=== PATIENT | male | born 1950 | race Caucasian/White ===

== ENCOUNTER 2019-07-16 15:22 | Outpatient (CLI) | payer MEDICARE, BC ==
--- NOTE | 2019-07-16 16:17 | MRI ---
MRI CERVICAL SPINE WITHOUT CONTRAST: HISTORY: Cervical radiculitis. Cervical pain radiating to both shoulders x3 months. COMPARISON: 08/16/2014 FINDINGS: Anterior fusion plate with transvertebral body screw at C5 and C6. Disc prosthesis. Associated metall ic susceptibility artifact. Overall there is appropriate T1 marrow signal intensity of the cervical vertebrae. Vertebral body height is maintained. No fracture. No significant STIR hyperintensity to dorman ggest vertebral body edema or ligamentous injury. C2-C3: No significant central canal stenosis. Moderate to severe bilateral foraminal narrowing. C3-C4: Broad-based disc bulge abuts the thecal sac. Mild central canal stenosis. Moderate to severe r ight and moderate left neural foraminal narrowing. C4-C5: Broad-based disc osteophyte complex abuts the thecal sac. Subarachnoid space is effaced. Moder ate central canal stenosis without cord hyperintensity. Mild to moderate right neural foraminal narrowing. Left neural foramen is mildly narrowed. C5-C6: Broad-based osteophyte ridge with mass effect upon the right hemicord. Moderate central canal stenosis without cord hyperintensity. Moderate to severe bilateral foraminal narrowing. C6-C7: Left paracentral disc protrusion. Mild central canal stenosis. Mild right and moderate to misti re left foraminal narrowing. C7-T1: No significant central canal stenosis or significant neural foraminal narrowing. IMPRESSION: 1. Degenerative changes of the cervical spine as detailed above. 2. Cervical fusion as detailed above. Transcribed Date/Time: 07/16/2019 4:27 PM
== END 2019-07-16 15:23 | disposition home or self-care (01) ==
LOC: BICMRI 15:22
PROVIDERS: ATTEND Family Medicine
DX: M47.22 Other spondylosis with radiculopathy, cervical region (principal); Z98.1 Arthrodesis status
CPT/HCPCS: 72141

== ENCOUNTER 2020-01-08 17:30 | Outpatient (CLI) | payer MEDICARE, BC | END 2020-01-08 17:31 | disposition home or self-care (01) | LOC: SLEEPLAB 17:30 | PROVIDERS: ATTEND Internal Medicine Critical Care Medicine | DX: G47.33 Obstructive sleep apnea (adult) (pediatric) (principal); R53.83 Other fatigue; R06.83 Snoring; G47.00 Insomnia, unspecified; R09.02 Hypoxemia; E66.9 Obesity, unspecified; Z68.34 Body mass index [BMI] 34.0-34.9, adult | CPT/HCPCS: 95801 ==

== ENCOUNTER 2020-01-24 05:35 | Outpatient (CLI) | payer MEDICARE, BC, OTHER ==
[2020-01-24 11:12] LABS: Hemoglobin 14.7 g/dL (14.0-18.0); Mean Corpuscular HGB CONC 31.9 g/dL (32.0-36.0); Mean Corpuscular Hemoglobin 29.3 pg (27.0-31.0); Mean Corpuscular Volume 91.9 fL (78.0-98.0); Mean Platelet Volume 8.1 fL (7.4-10.4); Platelet Count 135 thou/uL (130-400); RBC Distribution Width 12.3 % (11.5-14.5); Red Blood Cell (RBC) Count 5.01 mill/uL (4.70-6.10); White Blood Cell (WBC) Count 5.6 thou/uL (4.8-10.8)
[2020-01-24 11:47] LABS: Anion Gap 12 mmol/L (10-20); BUN (Urea Nitrogen) 15 mg/dL (8.4-25.7); Calc. Creatinine Clearance 0 mL/min (70-130); Calcium 8.6 mg/dL (7.8-10.44); Carbon Dioxide 27 mmol/L (23-31); Chloride 104 mmol/L (98-107); Estimated GFR-MDRD Greater than 90; Glucose 125 mg/dL (80-115); Potassium 4.2 mmol/L (3.5-5.1); Sodium 139 mmol/L (136-145)
[2020-01-25 12:48] LABS: SARS-CoV-2 MS2 Positive; SARS-CoV-2 N Gene Negative; SARS-CoV-2 S Gene Negative; SARS-CoV-2 orf1ab Negative
== END 2020-01-24 05:36 | disposition home or self-care (01) ==
LOC: LABBT 05:35
PROVIDERS: ATTEND Neurological Surgery
DX: Z01.812 Encounter for preprocedural laboratory examination (principal); Z11.59 Encounter for screening for other viral diseases; M54.12 Radiculopathy, cervical region
CPT/HCPCS: 80048; 85027; U0003; 87635

== ENCOUNTER 2020-01-28 08:06 | Day surgery (SDC) | payer MEDICARE, BC ==
[2020-01-22 10:22] VITALS: BMI 34.4
--- NOTE | 2020-01-27 23:26 | HP ---
HISTORY OF PRESENT ILLNESS: Mr. Sorenson is a 69-year-old man, presenting to our clinic for evaluation of recurrent cervical radiculopathy. He is known to our practice for prior ACDF in 2014. There was a C5-7 procedure planned, but there was a significant degree of difficulty in the surgical approach and ultimately a C5-6 procedure was able to be completed. His current pains have been present since April and comprised of combination of both right upper extremity C6 and C7 pattern. He does report numbness that is present most of the time over the same distributions. He has no left upper extremity pains, but does have some tingling to the left ear. Dr. Curtis has been providing epidural steroid injections at C5-7 with success, but only for around 2 to 3 weeks at a time. MRI from [facility] reveals likely symptomatic stenosis at C5-6 and the adjacent segment caudal to this at C6-7. Examination is deferred for [facility]. PAST MEDICAL HISTORY: Significant for arthritis, asthma, allergies, hypercholesterolemia, chronic pain, gout, heart disease, prior stroke, and hypothyroidism. PAST SURGICAL HISTORY: Lymph node biopsy, ACDF, and cardiac stents. ALLERGIES: NO KNOWN DRUG ALLERGIES. CURRENT MEDICATIONS: 1. Atorvastatin. 2. Tamsulosin. 3. Celebrex. 4. Bystolic. 5. Trintellix. 6. Avastin eye injections. 7. Ventolin. 8. Benadryl. 9. Aspirin. 10. Glucosamine. ASSESSMENT: Cervical radiculopathy. PLAN: Dr. Rush met with the patient, reviewed imaging and advocated for C5-C7 posterior cervical foraminotomy. He explained to the patient risks, benefits, and alternatives to the procedure. The patient expressed understanding and elected to move forward with surgery as discussed. I do believe the patient is mentally competent and capable of making medical decisions for himself. We will move forward with surgery as planned. Job ID: [id number]
[2020-01-28] MEDS ORDERED: Thrombin 5000 UNITS/5 ML VIAL ONE (11:25)
[2020-01-28] MEDS ORDERED: Bupivacaine PF 0.5% 30 ML VIAL ONE (11:25)
[2020-01-28] MEDS ORDERED: EPINEPHrine 1 MG/ML AMP ONE (11:25)
[2020-01-28] MEDS ORDERED: Lidocaine 2% Jelly 5 ML TUBE ONE (11:26)
[2020-01-28] MEDS ORDERED: Fentanyl 100 MCG/2 ML VIAL ONE ×4 (11:26→13:49)
[2020-01-28] MEDS ORDERED: Glycopyrrolate 0.2 MG/ML 5 ML SYRINGE ONE (12:52)
[2020-01-28] MEDS ORDERED: PROPOFOL 200 MG/20 ML VIAL ONE (12:52)
[2020-01-28] MEDS ORDERED: Dexamethasone 20 MG/5 ML VIAL ONE (12:52)
[2020-01-28] MEDS ORDERED: Lidocaine 1% PF 5 ML VIAL ONE (12:52)
[2020-01-28] MEDS ORDERED: PHENYLEPHRINE-NS 100 MCG/ML 10 ML SYRINGE ONE (12:52)
[2020-01-28] MEDS ORDERED: Rocuronium Bromide 10 MG/ML (10ML VIAL) ONE (12:52)
--- NOTE | 2020-01-28 13:05 | OP ---
DATE OF PROCEDURE: 01/28/2020 [employer]: Parish Montanez PA-C INDICATION: Pain. DIAGNOSIS: Cervical radiculopathy. PROCEDURES PERFORMED: Posterior cervical foraminotomy at C5 through C7 bilaterally. ANESTHESIA: General. DESCRIPTION OF PROCEDURE: The patient was brought into the operating room and placed under general anesthesia. He was flipped from the supine to prone position on the operating room table. A linear incision was planned spanning C5 through C7. After prepping and draping and after an appropriate preoperative pause, the incision was created. The soft tissues were swept away from midline. Self-retaining retractors were placed in the wound for optimal exposure. After confirming the appropriate level with serum fluoroscopy, high-speed cutting drill bit was used to performed a foraminotomy over the exiting C6 and C7 nerve roots. The foraminotomies were completed using 1 and 2 mm Kerrisons. After completing the decompression, the wound was irrigated. Hemostasis was maintained throughout. The wound was then closed in anatomic layers, and a pressure dressing was applied. There were no known procedural complications. Job ID: [id number]
[2020-01-28] MEDS ORDERED: Tamsulosin HCl 0.4 MG CAP ONE (13:49)
[2020-01-28] MEDS ORDERED: HYDROcodone/Acetaminophen 5/325 mg Tablet ONE (14:57)
== END 2020-01-28 15:34 | disposition home or self-care (01) ==
LOC: SDC 08:06
PROVIDERS: ATTEND Neurological Surgery
PROC: 01N10ZZ Release Cervical Nerve, Open Approach (ICD-10-PCS; principal; 2020-01-28)
DX: M54.12 Radiculopathy, cervical region (principal); M48.02 Spinal stenosis, cervical region; M19.90 Unspecified osteoarthritis, unspecified site; J45.909 Unspecified asthma, uncomplicated; E78.00 Pure hypercholesterolemia, unspecified; G89.29 Other chronic pain; M10.9 Gout, unspecified; I11.9 Hypertensive heart disease without heart failure; E03.9 Hypothyroidism, unspecified; G47.33 Obstructive sleep apnea (adult) (pediatric); I25.10 Atherosclerotic heart disease of native coronary artery without angina pectoris; E78.5 Hyperlipidemia, unspecified; N40.0 Benign prostatic hyperplasia without lower urinary tract symptoms; F32.9 Major depressive disorder, single episode, unspecified; Z86.73 Personal history of transient ischemic attack (TIA), and cerebral infarction without residual deficits; Z87.891 Personal history of nicotine dependence; Z79.82 Long term (current) use of aspirin; Z79.899 Other long term (current) drug therapy; Z88.8 Allergy status to other drugs, medicaments and biological substances; Z98.1 Arthrodesis status
CPT/HCPCS: 76000; 93005; 93010; J0171; J0690; J3010; S0020

== ENCOUNTER 2020-09-03 10:40 | Outpatient (CLI) | payer MEDICARE, BC ==
--- NOTE | 2020-09-03 11:38 | RAD ---
Chest 2 views HISTORY: Worsening dyspnea. COMPARISON: 11/22/2019. FINDINGS: Cardiac silhouette and pulmonary vasculature are unremarkable. Mediastinum is midline. Post operative changes cervical spine. Widespread, predominantly peripheral thickened interstitial markings have progressed since the prior study. Linear atelectasis/scarring at the right posterior lung base is also slightly worsened. No airspace consolidation, pleural fluid, or pneumothorax evident. IMPRESSION : Interval radiographic progression of suspected chronic interstitial lung disease and right basilar sc arring. No acute process is otherwise demonstrated.
--- NOTE | 2020-09-03 12:59 | RAD ---
EXAM: 3 views of the lumbosacral spine HISTORY: Low back pain for years COMPARISON: None FINDINGS: 3 views of the lumbosacral spine shows normal height and alignment of the vertebral bodies without fracture or subluxation. The intervertebral discs are narrowed at L4/5 and L5/S1 with small surrounding osteophytes. Posterior facet arthrosis is seen in the lower lumbosacral spine. The sacroiliac joints are unremarkable. Vascular calcifications are seen. IMPRESSION: Degenerative changes of the lower lumbosacral spine without acute osseous abnormality.
== END 2020-09-03 10:41 | disposition home or self-care (01) ==
LOC: BICRAD 10:40
PROVIDERS: ATTEND Family Medicine
DX: R06.00 Dyspnea, unspecified (principal); M54.9 Dorsalgia, unspecified; M47.817 Spondylosis without myelopathy or radiculopathy, lumbosacral region
CPT/HCPCS: 71046; 72100

== ENCOUNTER 2020-10-14 11:03 | Outpatient (CLI) | payer MEDICARE, BC | END 2020-10-14 11:04 | disposition home or self-care (01) | LOC: BICCT 11:03 | PROVIDERS: ATTEND Internal Medicine Critical Care Medicine | DX: J84.9 Interstitial pulmonary disease, unspecified (principal); J98.11 Atelectasis; J47.9 Bronchiectasis, uncomplicated; J98.4 Other disorders of lung | CPT/HCPCS: 71250 ==

== ENCOUNTER 2020-10-29 07:21 | Observation (INO) | payer MEDICARE, BC ==
[2020-10-28 14:07] VITALS: BMI 35.9
[2020-10-29] MEDS ORDERED: Levofloxacin 500 mg/D5W 100 ml Premix Bag ONE (07:35)
[2020-10-29 09:00] LABS: PTT 28.9 sec (22.9-36.1); Prothrombin Time 13.3 sec (12.0-14.7)
[2020-10-29] MEDS ORDERED: Iothalamate Meglumine 60% 50 ML VIAL FS ONE (09:26)
[2020-10-29] MEDS ORDERED: SUGAMMADEX SODIUM 200 MG/2 ML VIAL ONE ×2 (10:39→13:35)
[2020-10-29] MEDS ORDERED: Fentanyl 100 MCG/2 ML VIAL ONE (10:39)
[2020-10-29] MEDS ORDERED: Rocuronium Bromide 10 MG/ML (10ML VIAL) ONE (12:01)
[2020-10-29] MEDS ORDERED: Ondansetron PF 4 MG/2 ML Vial ONE (12:01)
[2020-10-29] MEDS ORDERED: Dexamethasone 20 MG/5 ML VIAL ONE (12:01)
[2020-10-29] MEDS ORDERED: ePHEDrine Sulfate 50 MG/10 ML VIAL ONE (12:01)
[2020-10-29] MEDS ORDERED: Lidocaine 1% PF 5 ML VIAL ONE (12:01)
[2020-10-29] MEDS ORDERED: PROPOFOL 200 MG/20 ML VIAL ONE (12:01)
[2020-10-29] MEDS ORDERED: PHENYLEPHRINE-NS 100 MCG/ML 10 ML SYRINGE ONE (12:01)
[2020-10-29] MEDS ORDERED: Phenazopyridine HCl 100 MG TAB ONE (14:00)
[2020-10-29] MEDS ORDERED: Tamsulosin HCl 0.4 MG CAP ONE (14:00)
[2020-11-05 21:12] LABS: CA Oxalate Dihydrate 10 % (.); CA Oxalate Monohydrate 90 % (.); Color Brown (.); Stone Weight 23 mg (.)
== END 2020-10-29 15:45 | disposition home or self-care (01) ==
LOC: INTOOBSV 07:21 → SURG A 07:21 → EDSTATUS 12:48
PROVIDERS: ADMIT Urology; ATTEND Urology
PROC: 0TC08ZZ Extirpation of Matter from Right Kidney, Via Natural or Artificial Opening Endoscopic (ICD-10-PCS; principal; 2020-10-29)
PROC: 0T768DZ Dilation of Right Ureter with Intraluminal Device, Via Natural or Artificial Opening Endoscopic (ICD-10-PCS; 2020-10-29)
PROC: 0TP98DZ Removal of Intraluminal Device from Ureter, Via Natural or Artificial Opening Endoscopic (ICD-10-PCS; 2020-10-29)
PROC: 0TJ58ZZ Inspection of Kidney, Via Natural or Artificial Opening Endoscopic (ICD-10-PCS; 2020-10-29)
PROC: 0TC68ZZ Extirpation of Matter from Right Ureter, Via Natural or Artificial Opening Endoscopic (ICD-10-PCS; 2020-10-29)
PROC: 0T538ZZ Destruction of Right Kidney Pelvis, Via Natural or Artificial Opening Endoscopic (ICD-10-PCS; 2020-10-29)
PROC: BT1DZZZ Fluoroscopy of Right Kidney, Ureter and Bladder (ICD-10-PCS; 2020-10-29)
PROC: 0T9680Z Drainage of Right Ureter with Drainage Device, Via Natural or Artificial Opening Endoscopic (ICD-10-PCS; 2020-10-29)
DX: N20.2 Calculus of kidney with calculus of ureter (principal); I10 Essential (primary) hypertension; I25.10 Atherosclerotic heart disease of native coronary artery without angina pectoris; R31.9 Hematuria, unspecified; F32.9 Major depressive disorder, single episode, unspecified; I73.9 Peripheral vascular disease, unspecified; M10.9 Gout, unspecified; N28.9 Disorder of kidney and ureter, unspecified; N40.1 Benign prostatic hyperplasia with lower urinary tract symptoms; R39.11 Hesitancy of micturition; M54.12 Radiculopathy, cervical region; J84.10 Pulmonary fibrosis, unspecified; K59.00 Constipation, unspecified; R97.20 Elevated prostate specific antigen [PSA]; Z20.822 Contact with and (suspected) exposure to COVID-19; M19.90 Unspecified osteoarthritis, unspecified site; Z85.828 Personal history of other malignant neoplasm of skin; Z79.82 Long term (current) use of aspirin; Z79.899 Other long term (current) drug therapy; Z88.8 Allergy status to other drugs, medicaments and biological substances; Z87.891 Personal history of nicotine dependence
CPT/HCPCS: 52356; 74018; 74420; 82365; 85610; 85730; 88300; C2617; Q9961; J1100; J1956; J2405; J2704; J3010; J7620

== ENCOUNTER 2020-11-11 07:14 | Emergency (ER) | payer MEDICARE, BC ==
[2020-11-11] MEDS ORDERED: Ondansetron PF 4 MG/2 ML Vial ONE (07:31)
[2020-11-11] MEDS ORDERED: Ketorolac Tromethamine 30 MG/ML VIAL ONE (07:31)
[2020-11-11] MEDS ORDERED: Morphine 4 MG/ML VIAL ONE (07:31)
[2020-11-11 07:52] LABS: #Eosinphils 0.1 thou/uL (0.0-0.7); #Lymphocytes 1.6 thou/uL (1.20-3.40); #Neutrophils 7.6 thou/uL (1.40-6.50); %Basophils 0.4 % (0.0-1.0); %Eosinophils 1.4 % (0.0-10.0); %Lymphocytes 15.2 % (21.0-51.0); Mean Corpuscular HGB CONC 32.3 g/dL (32.0-36.0); Mean Corpuscular Hemoglobin 29.8 pg (27.0-31.0); Mean Corpuscular Volume 92.3 fL (78.0-98.0); Mean Platelet Volume 7.2 fL (7.4-10.4); Platelet Count 157 thou/uL (130-400); RBC Distribution Width 12.3 % (11.5-14.5); Red Blood Cell (RBC) Count 4.69 mill/uL (4.70-6.10); White Blood Cell (WBC) Count 10.3 thou/uL (4.8-10.8)
[2020-11-11 08:16] LABS: ALT (SGPT) 50 U/L (8-55); AST (SGOT) 29 U/L (5-34); Alkaline Phosphatase 65 U/L (40-110); Anion Gap 13 mmol/L (10-20); BUN (Urea Nitrogen) 26 mg/dL (8.4-25.7); Bilirubin, Total 0.7 mg/dL (0.2-1.2); Calc. Creatinine Clearance 0 mL/min (70-130); Calcium 8.8 mg/dL (7.8-10.44); Carbon Dioxide 23 mmol/L (23-31); Chloride 107 mmol/L (98-107); Globulin 2.8 g/dL (2.4-3.5); Glucose 113 mg/dL (80-115); Potassium 4.2 mmol/L (3.5-5.1); Protein, Total 6.8 g/dL (5.8-8.1); Sodium 139 mmol/L (136-145)
[2020-11-11 09:05] LABS: Bacteria/HPF None Seen HPF (None Seen); Bilirubin Negative (Negative); Blood, Urine 3+ (Negative); Clarity Clear (Clear); Glucose, Urine (Dipstick) Normal (Negative); Ketone, Urine Negative (Negative); Leukocyte Negative Leu/uL (Negative); Nitrite Negative (Negative); Protein, Urine (Dipstick) Negative (Neg-Trace); RBC/HPF 21-50 HPF (0-3); Specific Gravity, Urine 1.019 (1.002-1.036); Squamous Epithelial 0-3 HPF (0-3); Urobilinogen Normal mg/dL (Less than 2); WBC/HPF 0-3 HPF (0-3)
[2020-11-11 15:52] LABS: SARS-CoV-2 PCR by NAA Not Detected (NotDetected)
== END 2020-11-11 10:53 | disposition home or self-care (01) ==
LOC: ERS 07:14
DX: N13.2 Hydronephrosis with renal and ureteral calculous obstruction (principal); E03.9 Hypothyroidism, unspecified; E78.00 Pure hypercholesterolemia, unspecified; Z87.891 Personal history of nicotine dependence; Z79.82 Long term (current) use of aspirin; Z79.899 Other long term (current) drug therapy
CPT/HCPCS: 74176; 80053; 85025; 87086; 96374; 96375; 99284; U0003; U0005; 81003; 81015; 87635; J1885; J2270; J2405

== ENCOUNTER 2020-11-12 07:50 | Day surgery (SDC) | payer MEDICARE, BC ==
[2020-11-12] MEDS ORDERED: Levofloxacin 500 mg/D5W 100 ml Premix Bag ONE (08:43)
[2020-11-12] MEDS ORDERED: Fentanyl 100 MCG/2 ML VIAL ONE (09:20)
[2020-11-12] MEDS ORDERED: Iothalamate Meglumine 60% 50 ML VIAL FS ONE (09:22)
[2020-11-12] MEDS ORDERED: Rocuronium Bromide 10 MG/ML (10ML VIAL) ONE (09:33)
[2020-11-12] MEDS ORDERED: Dexamethasone 20 MG/5 ML VIAL ONE (09:33)
[2020-11-12] MEDS ORDERED: PROPOFOL 200 MG/20 ML VIAL ONE (09:33)
[2020-11-12] MEDS ORDERED: Ondansetron PF 4 MG/2 ML Vial ONE (09:33)
[2020-11-12] MEDS ORDERED: Lidocaine 1% PF 5 ML VIAL ONE (09:33)
[2020-11-12] MEDS ORDERED: Glycopyrrolate 0.2 MG/ML 5 ML SYRINGE ONE (09:33)
[2020-11-12] MEDS ORDERED: SUGAMMADEX SODIUM 200 MG/2 ML VIAL ONE (11:01)
[2020-11-12] MEDS ORDERED: HYDROcodone/Acetaminophen 5/325 mg Tablet ONE ×3 (11:24→15:13)
[2020-11-12] MEDS ORDERED: Phenazopyridine HCl 100 MG TAB ONE (11:25)
[2020-11-12] MEDS ORDERED: Ondansetron ODT 4 MG TAB ONE (14:34)
[2020-11-12] MEDS ORDERED: Oxybutynin 5 MG TAB ONE (15:19)
[2020-11-12] MEDS ORDERED: Ketorolac Tromethamine 30 MG/ML VIAL ONE (15:41)
== END 2020-11-12 16:13 | disposition home or self-care (01) ==
LOC: SDC 07:50
PROVIDERS: ATTEND Urology
PROC: 0TC48ZZ Extirpation of Matter from Left Kidney Pelvis, Via Natural or Artificial Opening Endoscopic (ICD-10-PCS; principal; 2020-11-12)
PROC: 0T778DZ Dilation of Left Ureter with Intraluminal Device, Via Natural or Artificial Opening Endoscopic (ICD-10-PCS; 2020-11-12)
DX: N20.2 Calculus of kidney with calculus of ureter (principal); N40.1 Benign prostatic hyperplasia with lower urinary tract symptoms; R39.11 Hesitancy of micturition; I25.10 Atherosclerotic heart disease of native coronary artery without angina pectoris; E78.5 Hyperlipidemia, unspecified; I10 Essential (primary) hypertension; E03.9 Hypothyroidism, unspecified; M19.90 Unspecified osteoarthritis, unspecified site; G47.33 Obstructive sleep apnea (adult) (pediatric); E78.00 Pure hypercholesterolemia, unspecified; I25.2 Old myocardial infarction; I73.9 Peripheral vascular disease, unspecified; M54.12 Radiculopathy, cervical region; M10.9 Gout, unspecified; J84.10 Pulmonary fibrosis, unspecified; Z87.891 Personal history of nicotine dependence; Z79.82 Long term (current) use of aspirin; Z79.899 Other long term (current) drug therapy; Z88.8 Allergy status to other drugs, medicaments and biological substances; Z95.5 Presence of coronary angioplasty implant and graft
CPT/HCPCS: 52356; 74018; 74420; Q9961; J1100; J1885; J1956; J2405; J2704; J3010; Q0162

== ENCOUNTER 2021-02-20 09:32 | Outpatient (CLI) | payer MEDICARE, BC ==
[2021-02-21 16:36] LABS: SARS-CoV-2 PCR by NAA Not Detected (NotDetected)
== END 2021-02-20 09:33 | disposition home or self-care (01) ==
LOC: LABBT 09:32
PROVIDERS: ATTEND Urology
DX: Z01.812 Encounter for preprocedural laboratory examination (principal); Z20.822 Contact with and (suspected) exposure to COVID-19
CPT/HCPCS: U0003; U0005

== ENCOUNTER 2021-02-25 07:49 | Day surgery (SDC) | payer MEDICARE, BC ==
[2021-02-24 12:40] VITALS: BMI 35.9
[2021-02-25] MEDS ORDERED: Levofloxacin 500 mg/D5W 100 ml Premix Bag ONE (08:06)
[2021-02-25] MEDS ORDERED: Fentanyl 100 MCG/2 ML VIAL ONE (08:46)
[2021-02-25] MEDS ORDERED: Midazolam HCl 2 mg/2 ml Vial ONE (08:46)
[2021-02-25] MEDS ORDERED: Famotidine/PF 20 mg/2ml Vial ONE (08:46)
[2021-02-25] MEDS ORDERED: diphenhydrAMINE 50 MG/ML VIAL ONE (09:42)
[2021-02-25] MEDS ORDERED: PROPOFOL 200 MG/20 ML VIAL ONE (09:42)
[2021-02-25] MEDS ORDERED: Lidocaine 1% PF 5 ML VIAL ONE (09:42)
[2021-02-25] MEDS ORDERED: Ondansetron PF 4 MG/2 ML Vial ONE (09:42)
[2021-02-25] MEDS ORDERED: Metoclopramide HCl 10 MG/2 ML VIAL ONE (09:42)
[2021-02-25] MEDS ORDERED: Phenazopyridine HCl 100 MG TAB ONE (10:43)
[2021-02-25] MEDS ORDERED: HYDROcodone/Acetaminophen 5/325 mg Tablet ONE (10:57)
[2021-02-25] MEDS ORDERED: Ketorolac Tromethamine 30 MG/ML VIAL ONE (11:43)
== END 2021-02-25 12:35 | disposition home or self-care (01) ==
LOC: SDC 07:49
PROVIDERS: ATTEND Urology
PROC: 0T7D8DZ Dilation of Urethra with Intraluminal Device, Via Natural or Artificial Opening Endoscopic (ICD-10-PCS; principal; 2021-02-25)
DX: N40.1 Benign prostatic hyperplasia with lower urinary tract symptoms (principal); R39.14 Feeling of incomplete bladder emptying; N13.8 Other obstructive and reflux uropathy; N32.89 Other specified disorders of bladder; G47.33 Obstructive sleep apnea (adult) (pediatric); I25.10 Atherosclerotic heart disease of native coronary artery without angina pectoris; E78.5 Hyperlipidemia, unspecified; I10 Essential (primary) hypertension; E03.9 Hypothyroidism, unspecified; M19.90 Unspecified osteoarthritis, unspecified site; M54.12 Radiculopathy, cervical region; M10.9 Gout, unspecified; J84.10 Pulmonary fibrosis, unspecified; K59.00 Constipation, unspecified; E78.00 Pure hypercholesterolemia, unspecified; I25.2 Old myocardial infarction; Z87.442 Personal history of urinary calculi; Z87.891 Personal history of nicotine dependence; Z79.82 Long term (current) use of aspirin; Z79.899 Other long term (current) drug therapy; Z88.8 Allergy status to other drugs, medicaments and biological substances; Z95.5 Presence of coronary angioplasty implant and graft
CPT/HCPCS: 93005; C9740; 93010; J1200; J1885; J1956; J2250; J2405; J2704; J2765; J3010; L8699; S0028

== ENCOUNTER 2021-06-24 11:40 | Outpatient (CLI) | payer MEDICARE, BC | END 2021-06-24 11:41 | disposition home or self-care (01) | LOC: BICRAD 11:40 | PROVIDERS: ATTEND Family Medicine | DX: J84.10 Pulmonary fibrosis, unspecified (principal); R06.00 Dyspnea, unspecified | CPT/HCPCS: 71046 ==

== ENCOUNTER 2021-08-17 09:51 | Outpatient (CLI) | payer MEDICARE, BC | END 2021-08-17 09:52 | disposition home or self-care (01) | LOC: SCSMRI 09:51 | PROVIDERS: ATTEND Family Medicine | DX: M48.061 Spinal stenosis, lumbar region without neurogenic claudication (principal) | CPT/HCPCS: 70210; 72148 ==

== ENCOUNTER 2021-10-22 09:37 | Outpatient (CLI) | payer MEDICARE, BC | END 2021-10-22 09:38 | disposition home or self-care (01) | LOC: SCSCT 09:37 | PROVIDERS: ATTEND Internal Medicine Critical Care Medicine | DX: J84.9 Interstitial pulmonary disease, unspecified (principal); J84.10 Pulmonary fibrosis, unspecified | CPT/HCPCS: 71250 ==

== ENCOUNTER 2021-12-23 22:43 | Inpatient (IN) | payer MEDICARE, BC ==
[2021-12-24] MEDS ORDERED: Nitroglycerin 0.4 MG TAB (25 Tab Bottle) SL PRN (00:42)
[2021-12-24] MEDS ORDERED: Morphine 2 MG/ML VIAL SLOW IVP PRN ×2 (00:42→21:30)
[2021-12-24] MEDS ORDERED: Heparin 25,000 units/D5W 500 ML IVPB SCH (00:45)
[2021-12-24] MEDS ORDERED: Sodium Chloride 0.9% 500 ML IV SCH (01:00)
[2021-12-24 01:38] LABS: Hemoglobin 14.5 g/dL (14.0-18.0); Platelet Count 151 thou/uL (130-400)
[2021-12-24 02:24] LABS: CKMB 18.1 ng/mL (0-6.6)
[2021-12-24 03:55] LABS: #Eosinphils 0.1 thou/uL (0.0-0.7); #Lymphocytes 1.8 thou/uL (1.20-3.40); #Monocytes 0.6 thou/uL (0.11-0.59); #Neutrophils 4.5 thou/uL (1.40-6.50); %Basophils 0.2 % (0.0-1.0); %Eosinophils 1.2 % (0.0-10.0); %Lymphocytes 25.1 % (21.0-51.0); %Monocytes 8.3 % (0.0-10.0); %Neutrophils 65.1 % (42.0-75.0); Hemoglobin 14.2 g/dL (14.0-18.0); Mean Corpuscular HGB CONC 32.5 g/dL (32.0-36.0); Mean Corpuscular Volume 95.3 fL (78.0-98.0); Mean Platelet Volume 6.7 fL (7.4-10.4); Platelet Count 150 thou/uL (130-400)
[2021-12-24 04:21] LABS: ALT (SGPT) 39 U/L (8-55); AST (SGOT) 37 U/L (5-34); Albumin 3.7 g/dL (3.4-4.8); Alkaline Phosphatase 63 U/L (40-110); Anion Gap 14 mmol/L (10-20); BUN (Urea Nitrogen) 16 mg/dL (8.4-25.7); Bilirubin, Total 0.5 mg/dL (0.2-1.2); Calc. Creatinine Clearance 0 mL/min (70-130); Carbon Dioxide 24 mmol/L (23-31); Cardiac Risk 4.1 (Less than 4.5); Chloride 105 mmol/L (98-107); Cholesterol 130 mg/dl (< 200 Desired); Globulin 2.7 g/dL (2.4-3.5); Glucose 103 mg/dL (80-115); HDL Cholesterol 32 mg/dL (>60 Neg Risk); LDL Cholesterol, Calculated 64 mg/dL; Potassium 4.2 mmol/L (3.5-5.1); Protein, Total 6.4 g/dL (5.8-8.1); Sodium 139 mmol/L (136-145); Triglycerides 172 mg/dL (Less than 150)
[2021-12-24 04:35] LABS: Thyroid Stimulating Hormone 0.0682 uIU/mL (0.35-4.94)
[2021-12-24 05:06] LABS: Free T4 (Free Thyroxine) 1.03 ng/dL (0.70-1.48)
[2021-12-24] MEDS: Heparin 10,000 UNITS/ 10 ML VIAL SLOW IVP SCH ×2 (06:08→13:27)
[2021-12-24 07:20] LABS: Troponin I 7.538 ng/mL (< 0.028)
[2021-12-24 07:21] LABS: CKMB 40.5 ng/mL (0-6.6)
[2021-12-24 07:29] LABS: SARS-CoV-2 NAA Rapid Test Not Detected (NotDetected)
[2021-12-24] MEDS ORDERED: Chloraseptic Spray 180 ml Bottle PO PRN (08:13)
[2021-12-24] MEDS ORDERED: Aspirin Chewable 81 MG TAB PO SCH (09:00)
[2021-12-24] MEDS ORDERED: Diazepam 5 MG TAB PO PRN (15:01)
[2021-12-24] MEDS ORDERED: Communication Order-Pharmacy FS PRN (15:01)
[2021-12-24] MEDS ORDERED: Morphine 4 MG/ML VIAL ONE (17:37)
[2021-12-24] MEDS ORDERED: Nitroglycerin 2% Ointment 1 INCH/1 GM Packet ONE (17:39)
[2021-12-24] MEDS ORDERED: Nitroglycerin 2% Ointment 1 INCH/1 GM Packet TOP SCH (18:00)
[2021-12-24] MEDS ORDERED: Morphine 2 MG/ML VIAL SLOW IVP SCH (18:00)
[2021-12-24] MEDS ORDERED: Tamsulosin HCl 0.4 MG CAP PO SCH (21:00)
[2021-12-24] MEDS ORDERED: Non-Formulary Item 1 EACH (Budesonide/Glycopyr/Formoterol [Breztri Aerosphere Inhaler] 10 INH SCH (21:00)
[2021-12-24] MEDS ORDERED: Atorvastatin Calcium 40 MG TAB PO SCH (21:00)
[2021-12-24] MEDS ORDERED: Nitroglycerin 50 MG/250 ML BOT 250 ML IVPB SCH (21:30)
[2021-12-25 03:56] LABS: #Eosinphils 0.2 thou/uL (0.0-0.7); #Lymphocytes 1.5 thou/uL (1.20-3.40); #Monocytes 0.8 thou/uL (0.11-0.59); #Neutrophils 6.7 thou/uL (1.40-6.50); %Basophils 0.2 % (0.0-1.0); %Eosinophils 2.1 % (0.0-10.0); %Monocytes 8.3 % (0.0-10.0); %Neutrophils 73.5 % (42.0-75.0); Mean Corpuscular HGB CONC 31.8 g/dL (32.0-36.0); Mean Corpuscular Hemoglobin 30.8 pg (27.0-31.0); Mean Corpuscular Volume 96.7 fL (78.0-98.0); Mean Platelet Volume 6.8 fL (7.4-10.4); Platelet Count 130 thou/uL (130-400); RBC Distribution Width 13.1 % (11.5-14.5); Red Blood Cell (RBC) Count 4.53 mill/uL (4.70-6.10); White Blood Cell (WBC) Count 9.1 thou/uL (4.8-10.8)
[2021-12-25 04:26] LABS: ALT (SGPT) 39 U/L (8-55); AST (SGOT) 38 U/L (5-34); Albumin 3.7 g/dL (3.4-4.8); Alkaline Phosphatase 62 U/L (40-110); Anion Gap 14 mmol/L (10-20); BUN (Urea Nitrogen) 11 mg/dL (8.4-25.7); Bilirubin, Total 0.6 mg/dL (0.2-1.2); Calc. Creatinine Clearance 124 mL/min (70-130); Calcium 8.6 mg/dL (7.8-10.44); Carbon Dioxide 23 mmol/L (23-31); Chloride 105 mmol/L (98-107); Globulin 2.7 g/dL (2.4-3.5); Glucose 128 mg/dL (80-115); Potassium 3.8 mmol/L (3.5-5.1); Protein, Total 6.4 g/dL (5.8-8.1); Sodium 138 mmol/L (136-145)
[2021-12-25] MEDS ORDERED: Levothyroxine Sodium 100 MCG TAB PO SCH (06:00)
[2021-12-25] MEDS ORDERED: Dexamethasone 4 mg/ml Vial ONE (06:25)
[2021-12-25] MEDS ORDERED: EPINEPHrine 1 MG/ML AMP ONE (06:25)
[2021-12-25] MEDS ORDERED: Albumin 5% 500 ML ONE ×2 (06:25→10:55)
[2021-12-25] MEDS ORDERED: Bupivacaine PF 0.5% 30 ML VIAL ONE (06:25)
[2021-12-25] MEDS ORDERED: fentaNYL Citrate/PF 100 MCG/2 ML SYRINGE ONE ×4 (06:54→10:05)
[2021-12-25] MEDS ORDERED: Fentanyl 100 MCG/2 ML VIAL ONE ×2 (06:58→06:59)
[2021-12-25] MEDS ORDERED: Heparin 10,000 UNITS/1 ML VIAL 30,000 UNITS in Sodium Chloride 0.9% 1,000 ML FS SCH (07:00)
[2021-12-25] MEDS ORDERED: Ondansetron PF 4 MG/2 ML Vial IVP PRN (07:17)
[2021-12-25] MEDS ORDERED: Heparin 30,000 units/30 ml VIAL ONE (07:43)
[2021-12-25] MEDS ORDERED: Magnesium Sulfate 1 GM/2 ML VIAL ONE (07:43)
[2021-12-25] MEDS ORDERED: Norepinephrine 4 MG/4 ML VIAL ONE (07:43)
[2021-12-25] MEDS ORDERED: Calcium Chloride 1 GM/10 ML Abboject SYRINGE ONE (07:43)
[2021-12-25] MEDS ORDERED: Protamine Sulfate 250 MG/25 ML VIAL ONE (07:43)
[2021-12-25] MEDS ORDERED: Papaverine 60 MG/2 ML VIAL ONE (07:43)
[2021-12-25] MEDS ORDERED: Sodium Bicarb 50 MEQ/50 ML Abboject 8.4% SYRINGE ONE (07:43)
[2021-12-25] MEDS ORDERED: Rocuronium Bromide 10 MG/ML (10ML VIAL) ONE (07:43)
[2021-12-25] MEDS ORDERED: Aminocaproic Acid 5 GM/20 ML VIAL ONE (07:43)
[2021-12-25] MEDS ORDERED: Lidocaine 1% PF 5 ML VIAL ONE (07:43)
[2021-12-25] MEDS ORDERED: Heparin 5,000 UNITS/ML VIAL ONE (07:43)
[2021-12-25] MEDS ORDERED: Dexamethasone 20 MG/5 ML VIAL ONE ×2 (07:43)
[2021-12-25] MEDS ORDERED: Thrombin 5000 UNITS/5 ML VIAL ONE (07:43)
[2021-12-25] MEDS ORDERED: PROPOFOL 200 MG/20 ML VIAL ONE (07:43)
[2021-12-25] MEDS ORDERED: Cardioplegic Soln 1,000 ML BAG ONE (07:43)
[2021-12-25] MEDS ORDERED: PHENYLEPHRINE-NS 100 MCG/ML 10 ML SYRINGE ONE (07:43)
[2021-12-25] MEDS ORDERED: Mannitol 12.5 GM/50 ML ONE (07:43)
[2021-12-25] MEDS ORDERED: Lidocaine 2% PF 100 mg/5 ml Syringe ONE (07:43)
[2021-12-25] MEDS ORDERED: Non-Formulary Item 1 EACH (Levothyroxine Sodium [Synthroid] 200 MCG Tablet) PO SCH (09:00)
[2021-12-25] MEDS ORDERED: Nitroglycerin 50 MG/250 ML BOT 250 ML IVPB PRN (11:29)
[2021-12-25] MEDS ORDERED: Potassium Chloride 20 MEQ/100 ML PREMIX BAG IVPB PRN (11:29)
[2021-12-25] MEDS ORDERED: Fentanyl 100 MCG/2 ML VIAL SLOW IVP PRN ×2 (11:29)
[2021-12-25] MEDS ORDERED: Norepinephrine 8 MG/0.9% NS 250 ML IVPB PRN (11:29)
[2021-12-25] MEDS ORDERED: niCARdipine 25 MG in Sodium Chloride 0.9% 250 ML 250 ML IVPB PRN (11:29)
[2021-12-25] MEDS ORDERED: Bisacodyl 10 MG SUPP PR PRN (11:29)
[2021-12-25] MEDS ORDERED: traMADol HCl 50 MG TAB PO PRN ×2 (11:29)
[2021-12-25] MEDS ORDERED: Bisacodyl 5 MG TAB PO PRN (11:29)
[2021-12-25] MEDS ORDERED: Guaifenesin DM 100-10/5 ML UDCUP PO PRN (11:29)
[2021-12-25] MEDS ORDERED: Promethazine HCl 25 MG/ML VIAL IM PRN (11:29)
[2021-12-25] MEDS ORDERED: HYDROcodone/Acetaminophen 5/325 mg Tablet PO PRN ×2 (11:29)
[2021-12-25] MEDS ORDERED: Hetastarch 6% 500 ML 500 ML IVPB PRN (11:29)
[2021-12-25] MEDS ORDERED: Mag-Al 1200 mg/1200 mg/30 ML UDCUP PO PRN (11:29)
[2021-12-25] MEDS ORDERED: Magnesium 2 GM/50 ML(in water) 2 GM in Premix Bag 1 BAG IVPB SCH (11:30)
[2021-12-25 11:44] LABS: Actual Bicarbonate (HCO3a) 22.3 mEq/L (22-28); Base Excess (BEa) -3.9 mEq/L (-2.0 to +3.0); CO2 Tension 45.1 mmHg (35.0-45.0); Carboxyhemoglobin (COHb) 0.9 gm% (0.0-3.0); Hemoglobin (Hb) 12.7 g/dL (14.0-18.0); O2 Tension (PaO2), arterial 97.4 mmHg (> 80.0); Potassium - ABG Lab 4.31 mmol/L (3.70-5.30); pH, Arterial 7.31 (7.35-7.45)
[2021-12-25] MEDS ORDERED: Dextrose 5% in Water 1,000 ML IV PRN (11:45)
[2021-12-25] MEDS ORDERED: HUMULIN R 100 UNITS in Sodium Chloride 0.9% 100 ML IVPB SCH (11:45)
[2021-12-25] MEDS ORDERED: Dextrose 50% Abboject 50 ML SYRINGE SLOW IVP PRN (11:45)
[2021-12-25 11:50] LABS: ALV-art Gradient 487.925 mmHg (0-20); Puncture Site Arterial Line
[2021-12-25 12:07] LABS: INR-International Normal Ratio 1.2; Prothrombin Time 15.4 sec (12.0-14.7)
[2021-12-25 12:08] LABS: PTT 30.9 sec (22.9-36.1)
[2021-12-25] MEDS: D5 1/2 NS w/20 mEq KCL 1,000 ML IV SCH (12:11)
[2021-12-25] MEDS: Morphine 2 MG/ML VIAL SLOW IVP PRN ×2 (12:11→12:26)
[2021-12-25 12:15] LABS: Anion Gap 14 mmol/L (10-20); BUN (Urea Nitrogen) 10 mg/dL (8.4-25.7); Calc. Creatinine Clearance 131 mL/min (70-130); Calcium 8.5 mg/dL (7.8-10.44); Carbon Dioxide 21 mmol/L (23-31); Chloride 106 mmol/L (98-107); Glucose 178 mg/dL (80-115); Potassium 4.4 mmol/L (3.5-5.1); Sodium 137 mmol/L (136-145)
[2021-12-25] MEDS: Ketorolac Tromethamine 30 MG/ML VIAL IVP SCH ×2 (12:17→17:57)
[2021-12-25] MEDS: Insulin Regular 300 UNITS/3 ML VIAL SC PRN (12:18)
[2021-12-25 12:31] LABS: #Eosinphils 0.1 thou/uL (0.0-0.7); #Lymphocytes 1.7 thou/uL (1.20-3.40); #Neutrophils 10.2 thou/uL (1.40-6.50); %Basophils 0.1 % (0.0-1.0); %Eosinophils 0.9 % (0.0-10.0); %Lymphocytes 13.3 % (21.0-51.0); %Monocytes 7.5 % (0.0-10.0); %Neutrophils 78.2 % (42.0-75.0); Hemoglobin 12.4 g/dL (14.0-18.0); Mean Corpuscular Hemoglobin 30.8 pg (27.0-31.0); Mean Corpuscular Volume 96.2 fL (78.0-98.0); Mean Platelet Volume 6.8 fL (7.4-10.4); Platelet Count 101 thou/uL (130-400); Red Blood Cell (RBC) Count 4.04 mill/uL (4.70-6.10)
[2021-12-25 12:43] LABS: MDiff Complete? YES; Platelet Morphology Comment Appears Decreased; Polychromasia SLIGHT = 2-3 cells (100X) (0-2/hpf)
[2021-12-25] MEDS: CEFAZOLIN 2 GM in Sodium Chloride 0.9% 100 ML IVPB SCH ×2 (13:06→22:30)
[2021-12-25 13:16] LABS: Base Excess (BEa) -7.4 mEq/L (-2.0 to +3.0); CO2 Tension 47.8 mmHg (35.0-45.0); Calcium, Ionized (arterial) 1.18 mmol/L (1.12-1.30); Carboxyhemoglobin (COHb) 0.6 gm% (0.0-3.0); Hemoglobin (Hb) 13.4 g/dL (14.0-18.0); O2 Tension (PaO2), arterial 64.8 mmHg (> 80.0); Potassium - ABG Lab 4.57 mmol/L (3.70-5.30)
[2021-12-25 13:32] LABS: Puncture Site Arterial Line; pH, Arterial 7.24 (7.35-7.45)
[2021-12-25] MEDS ORDERED: Ventilator Sedation Protocol 1 EACH FS ONE (13:56)
[2021-12-25] MEDS ORDERED: fentaNYL Citrate-0.9 % NaCl/PF 100 ML IV SCH (14:00)
[2021-12-25] MEDS ORDERED: Fentanyl BOLUS 250 ML IVPB PRN (14:00)
[2021-12-25] MEDS ORDERED: Propofol BOLUS 1,000 MG/100 ML VIAL IV PRN (14:00)
[2021-12-25] MEDS ORDERED: DISCONTINUE PREVIOUS NARCOTIC PAIN MEDICATIONS AND BENZODIAZEPINES FS SCH (14:00)
[2021-12-25] MEDS ORDERED: Lorazepam 2 MG/ML VIAL SLOW IVP PRN (14:00)
[2021-12-25 17:35] LABS: Hemoglobin 12.5 g/dL (14.0-18.0)
[2021-12-25 17:43] LABS: Potassium 4.7 mmol/L (3.5-5.1)
[2021-12-25] MEDS: Famotidine/PF 20 mg/2ml Vial SLOW IVP SCH (20:43)
[2021-12-25] MEDS: Montelukast Sodium 10 mg Tablet PO SCH (21:35)
[2021-12-25] MEDS: Propofol 1,000 MG/100 ML VIAL IV PRN (22:11)
[2021-12-26] MEDS: Ketorolac Tromethamine 30 MG/ML VIAL IVP SCH ×5 (00:27→23:34)
[2021-12-26] MEDS: Morphine 4 MG/ML VIAL SLOW IVP PRN ×2 (03:09→04:55)
[2021-12-26 04:28] LABS: Anion Gap 12 mmol/L (10-20); BUN (Urea Nitrogen) 12 mg/dL (8.4-25.7); Calc. Creatinine Clearance 138 mL/min (70-130); Calcium 8.1 mg/dL (7.8-10.44); Carbon Dioxide 24 mmol/L (23-31); Chloride 105 mmol/L (98-107); Glucose 125 mg/dL (80-115); Potassium 4.3 mmol/L (3.5-5.1); Sodium 137 mmol/L (136-145)
[2021-12-26 05:11] LABS: #Lymphocytes 1.2 thou/uL (1.20-3.40); #Monocytes 1.4 thou/uL (0.11-0.59); #Neutrophils 8.5 thou/uL (1.40-6.50); %Basophils 0.1 % (0.0-1.0); %Eosinophils 0.1 % (0.0-10.0); %Lymphocytes 10.4 % (21.0-51.0); %Monocytes 12.5 % (0.0-10.0); %Neutrophils 76.9 % (42.0-75.0); Hemoglobin 12.2 g/dL (14.0-18.0); Mean Corpuscular HGB CONC 32.9 g/dL (32.0-36.0); Mean Corpuscular Hemoglobin 31.5 pg (27.0-31.0); Mean Corpuscular Volume 95.8 fL (78.0-98.0); Mean Platelet Volume 7.2 fL (7.4-10.4); Platelet Count 114 thou/uL (130-400); RBC Distribution Width 12.9 % (11.5-14.5); Red Blood Cell (RBC) Count 3.88 mill/uL (4.70-6.10); White Blood Cell (WBC) Count 11.1 thou/uL (4.8-10.8)
[2021-12-26] MEDS: Propofol 1,000 MG/100 ML VIAL IV PRN (05:50)
[2021-12-26] MEDS: CEFAZOLIN 2 GM in Sodium Chloride 0.9% 100 ML IVPB SCH (05:51)
[2021-12-26] MEDS: Fentanyl 100 MCG/2 ML VIAL SLOW IVP PRN ×5 (08:28→20:38)
[2021-12-26] MEDS: Famotidine/PF 20 mg/2ml Vial SLOW IVP SCH (08:36)
[2021-12-26] MEDS: Magnesium 2 GM/50 ML(in water) 2 GM in Premix Bag 1 BAG IVPB SCH (08:36)
[2021-12-26] MEDS: Aspirin 325 MG TAB PO SCH (08:58)
[2021-12-26] MEDS: Atorvastatin Calcium 20 MG TAB PO SCH (08:58)
[2021-12-26] MEDS: Levothyroxine Sodium 100 MCG TAB PO SCH (09:46)
[2021-12-26] MEDS ORDERED: Insulin Glargine 30 UNITS/0.3 ML VIAL SC PRN (11:36)
[2021-12-26] MEDS: HYDROcodone/Acetaminophen 5/325 mg Tablet PO PRN ×2 (12:50→16:16)
[2021-12-26] MEDS: D5 1/2 NS w/20 mEq KCL 1,000 ML IV SCH (16:17)
[2021-12-26] MEDS: Famotidine 20 MG TAB PO SCH (20:37)
[2021-12-26] MEDS: Montelukast Sodium 10 mg Tablet PO SCH (20:38)
[2021-12-26] MEDS: Insulin Regular 300 UNITS/3 ML VIAL SC PRN (22:01)
[2021-12-27] MEDS: Insulin Regular 300 UNITS/3 ML VIAL SC PRN (00:50)
[2021-12-27 04:25] LABS: #Eosinphils 0.3 thou/uL (0.0-0.7); #Lymphocytes 1.6 thou/uL (1.20-3.40); #Monocytes 1.3 thou/uL (0.11-0.59); #Neutrophils 6.1 thou/uL (1.40-6.50); %Basophils 0.3 % (0.0-1.0); %Eosinophils 2.9 % (0.0-10.0); %Lymphocytes 17.4 % (21.0-51.0); %Monocytes 13.7 % (0.0-10.0); %Neutrophils 65.6 % (42.0-75.0); Hemoglobin 11.7 g/dL (14.0-18.0); Mean Corpuscular Hemoglobin 30.8 pg (27.0-31.0); Mean Corpuscular Volume 96.4 fL (78.0-98.0); Platelet Count 112 thou/uL (130-400); RBC Distribution Width 12.9 % (11.5-14.5); Red Blood Cell (RBC) Count 3.79 mill/uL (4.70-6.10); White Blood Cell (WBC) Count 9.4 thou/uL (4.8-10.8)
[2021-12-27 04:42] LABS: Anion Gap 10 mmol/L (10-20); BUN (Urea Nitrogen) 10 mg/dL (8.4-25.7); Calc. Creatinine Clearance 142 mL/min (70-130); Calcium 8.2 mg/dL (7.8-10.44); Carbon Dioxide 29 mmol/L (23-31); Chloride 103 mmol/L (98-107); Glucose 117 mg/dL (80-115); Potassium 3.8 mmol/L (3.5-5.1); Sodium 138 mmol/L (136-145)
[2021-12-27] MEDS: Ketorolac Tromethamine 30 MG/ML VIAL IVP SCH ×4 (05:18→23:20)
[2021-12-27] MEDS: Levothyroxine Sodium 100 MCG TAB PO SCH (05:19)
[2021-12-27] MEDS ORDERED: Furosemide 40 MG/4 ML VIAL SLOW IVP SCH (08:30)
[2021-12-27] MEDS ORDERED: Potassium Chloride 10 MEQ TAB PO SCH (08:45)
[2021-12-27] MEDS: Aspirin 325 MG TAB PO SCH (09:00)
[2021-12-27] MEDS: Atorvastatin Calcium 20 MG TAB PO SCH (09:00)
[2021-12-27] MEDS: Famotidine 20 MG TAB PO SCH ×2 (09:01→20:21)
[2021-12-27] MEDS: Cyclobenzaprine 10 MG TAB PO SCH ×3 (09:01→20:21)
[2021-12-27] MEDS: HYDROcodone/Acetaminophen 5/325 mg Tablet PO PRN ×3 (09:01→23:21)
[2021-12-27] MEDS: Magnesium 2 GM/50 ML(in water) 2 GM in Premix Bag 1 BAG IVPB SCH (09:02)
[2021-12-27] MEDS: Allopurinol 300 MG TAB PO SCH (09:11)
[2021-12-27] MEDS ORDERED: Guaifenesin DM 100-10/5 ML UDCUP PO PRN (09:13)
[2021-12-27] MEDS ORDERED: Zolpidem Tartrate 5 MG TAB PO PRN (09:13)
[2021-12-27] MEDS ORDERED: Mag-Al 1200 mg/1200 mg/30 ML UDCUP PO PRN (09:13)
[2021-12-27] MEDS ORDERED: Bisacodyl 10 MG SUPP PR PRN (09:13)
[2021-12-27] MEDS ORDERED: Milk Of Magnesia 30 ML UDCUP PO PRN (09:13)
[2021-12-27] MEDS ORDERED: Nitroglycerin 0.4 MG TAB (25 Tab Bottle) SL PRN (09:13)
[2021-12-27] MEDS ORDERED: Mineral Oil ENEMA PR PRN (09:13)
[2021-12-27] MEDS ORDERED: Digoxin 0.25 MG TAB PO SCH (09:45)
[2021-12-27] MEDS: Fentanyl 100 MCG/2 ML VIAL SLOW IVP PRN ×3 (12:52→20:21)
[2021-12-27] MEDS ORDERED: Amiodarone 150 MG in Dextrose 5% in Water 100 ML IVPB SCH (13:00)
[2021-12-27] MEDS ORDERED: Digoxin 0.5 MG/2 ML AMP SLOW IVP SCH ×3 (13:00→17:00)
[2021-12-27] MEDS: Amiodarone 450 MG in Dextrose 5% in Water 250 ML IVPB SCH ×2 (13:37→21:42)
[2021-12-27] MEDS: Furosemide 20 MG TAB PO SCH (14:00)
[2021-12-27] MEDS ORDERED: Enoxaparin Sodium 120 MG/0.8 ML SYRINGE SC SCH ×2 (14:00→21:00)
[2021-12-27] MEDS: diphenhydrAMINE 25 MG CAP PO PRN ×2 (14:13→21:42)
[2021-12-27 15:00] LABS: ALT (SGPT) 35 U/L (8-55); AST (SGOT) 41 U/L (5-34); Albumin 3.2 g/dL (3.4-4.8); Alkaline Phosphatase 57 U/L (40-110); Bilirubin, Direct 0.4 mg/dL (0.1-0.3); Bilirubin, Total 0.7 mg/dL (0.2-1.2); Magnesium 2.4 mg/dL (1.6-2.6); Protein, Total 5.8 g/dL (5.8-8.1)
[2021-12-27] MEDS: Potassium Chloride 10 MEQ TAB PO SCH (16:41)
[2021-12-27] MEDS ORDERED: Nebivolol HCl 2.5 MG TAB PO SCH (17:30)
[2021-12-27] MEDS: Montelukast Sodium 10 mg Tablet PO SCH (20:21)
[2021-12-28 04:50] LABS: Digoxin 1.15 ng/mL (0.8-2.0)
[2021-12-28] MEDS: Ketorolac Tromethamine 30 MG/ML VIAL IVP SCH ×2 (06:03→11:53)
[2021-12-28] MEDS: Levothyroxine Sodium 100 MCG TAB PO SCH (06:04)
[2021-12-28] MEDS: HYDROcodone/Acetaminophen 5/325 mg Tablet PO PRN ×3 (06:11→20:52)
[2021-12-28] MEDS: Ondansetron PF 4 MG/2 ML Vial IVP PRN (06:47)
[2021-12-28] MEDS: Cyclobenzaprine 10 MG TAB PO SCH ×3 (10:41→20:51)
[2021-12-28] MEDS: Aspirin 325 MG TAB PO SCH (10:42)
[2021-12-28] MEDS: Atorvastatin Calcium 20 MG TAB PO SCH (10:43)
[2021-12-28] MEDS: Potassium Chloride 10 MEQ TAB PO SCH ×2 (10:43→17:21)
[2021-12-28] MEDS: Furosemide 20 MG TAB PO SCH ×2 (10:44→15:40)
[2021-12-28] MEDS: Famotidine 20 MG TAB PO SCH ×2 (10:48→20:51)
[2021-12-28] MEDS: Allopurinol 300 MG TAB PO SCH (10:48)
[2021-12-28] MEDS: Digoxin 0.25 MG TAB PO SCH (10:50)
[2021-12-28] MEDS: Nebivolol HCl 2.5 MG TAB PO SCH (11:53)
[2021-12-28] MEDS: Amiodarone 450 MG in Dextrose 5% in Water 250 ML IVPB SCH (13:11)
[2021-12-28] MEDS: Bisacodyl 5 MG TAB PO PRN (15:38)
[2021-12-28] MEDS: Montelukast Sodium 10 mg Tablet PO SCH (20:51)
[2021-12-28] MEDS: diphenhydrAMINE 25 MG CAP PO PRN (20:51)
[2021-12-29] MEDS: HYDROcodone/Acetaminophen 5/325 mg Tablet PO PRN (01:47)
[2021-12-29] MEDS: Amiodarone 450 MG in Dextrose 5% in Water 250 ML IVPB SCH (02:54)
[2021-12-29] MEDS: Levothyroxine Sodium 100 MCG TAB PO SCH (06:23)
[2021-12-29] MEDS ORDERED: Metolazone 5 MG TAB PO SCH (07:30)
[2021-12-29] MEDS: Potassium Chloride 10 MEQ TAB PO SCH ×2 (10:14→19:00)
[2021-12-29] MEDS: Aspirin 325 MG TAB PO SCH (10:14)
[2021-12-29] MEDS: Cyclobenzaprine 10 MG TAB PO SCH ×3 (10:14→21:22)
[2021-12-29] MEDS: Famotidine 20 MG TAB PO SCH ×2 (10:14→21:21)
[2021-12-29] MEDS: Allopurinol 300 MG TAB PO SCH (10:14)
[2021-12-29] MEDS: Atorvastatin Calcium 20 MG TAB PO SCH (10:14)
[2021-12-29] MEDS: Digoxin 0.25 MG TAB PO SCH (10:14)
[2021-12-29] MEDS: Nebivolol HCl 2.5 MG TAB PO SCH (10:15)
[2021-12-29] MEDS: Furosemide 20 MG TAB PO SCH ×2 (10:15→14:15)
[2021-12-29] MEDS ORDERED: Amiodarone 200 MG TAB PO SCH (13:00)
[2021-12-29 21:09] LABS: Anion Gap 16 mmol/L (10-20); BUN (Urea Nitrogen) 20 mg/dL (8.4-25.7); Calc. Creatinine Clearance 81 mL/min (70-130); Calcium 9.6 mg/dL (7.8-10.44); Carbon Dioxide 33 mmol/L (23-31); Chloride 91 mmol/L (98-107); Glucose 117 mg/dL (80-115); Magnesium 2.2 mg/dL (1.6-2.6); Potassium 4.2 mmol/L (3.5-5.1); Sodium 136 mmol/L (136-145)
[2021-12-29] MEDS: Amiodarone 200 MG TAB PO SCH (21:21)
[2021-12-29] MEDS: Bisacodyl 5 MG TAB PO PRN (21:21)
[2021-12-29] MEDS: diphenhydrAMINE 25 MG CAP PO PRN (21:21)
[2021-12-29] MEDS: Acetaminophen 325 MG TAB PO PRN (21:22)
[2021-12-29] MEDS: Montelukast Sodium 10 mg Tablet PO SCH (21:23)
[2021-12-29] MEDS: Fentanyl 100 MCG/2 ML VIAL SLOW IVP PRN (23:04)
[2021-12-30] MEDS: Ondansetron PF 4 MG/2 ML Vial IVP PRN (03:46)
[2021-12-30] MEDS: Levothyroxine Sodium 100 MCG TAB PO SCH (05:37)
[2021-12-30] MEDS ORDERED: Non-Formulary Item 1 EACH (Vortioxetine Hydrobromide [Trintellix] 20 MG Tablet) PO SCH (09:00)
[2021-12-30 09:40] LABS: Actual Bicarbonate (HCO3a) 24.4 mEq/L (22-28); Analyzer IN Cardio OR; CO2 Tension 43.4 mmHg (35.0-45.0); Calcium, Ionized (arterial) 1.07 mmol/L (1.12-1.30); Carboxyhemoglobin (COHb) 0.9 gm% (0.0-3.0); Hemoglobin (Hb) 13.1 g/dL (14.0-18.0); O2 Tension (PaO2), arterial 240.9 mmHg (> 80.0); Potassium - ABG Lab 4.04 mmol/L (3.70-5.30); pH, Arterial 7.37 (7.35-7.45)
[2021-12-30 09:40] LABS: Analyzer IN Cardio OR; Base Excess (BEa) -0.9 mEq/L (-2.0 to +3.0); CO2 Tension 46.1 mmHg (35.0-45.0); Calcium, Ionized (arterial) 1.08 mmol/L (1.12-1.30); Carboxyhemoglobin (COHb) 0.8 gm% (0.0-3.0); Hemoglobin (Hb) 13.4 g/dL (14.0-18.0); O2 Tension (PaO2), arterial 349.5 mmHg (> 80.0); Potassium - ABG Lab 4.41 mmol/L (3.70-5.30); pH, Arterial 7.35 (7.35-7.45)
[2021-12-30] MEDS: Potassium Chloride 10 MEQ TAB PO SCH ×2 (10:39→17:16)
[2021-12-30] MEDS: Atorvastatin Calcium 20 MG TAB PO SCH (10:39)
[2021-12-30] MEDS: Cyclobenzaprine 10 MG TAB PO SCH ×3 (10:39→21:37)
[2021-12-30] MEDS: Famotidine 20 MG TAB PO SCH ×2 (10:39→21:39)
[2021-12-30] MEDS: Amiodarone 200 MG TAB PO SCH ×2 (10:39→21:37)
[2021-12-30] MEDS: Aspirin 325 MG TAB PO SCH (10:39)
[2021-12-30] MEDS: Furosemide 20 MG TAB PO SCH ×2 (10:39→17:16)
[2021-12-30] MEDS: Allopurinol 300 MG TAB PO SCH (10:39)
[2021-12-30] MEDS: Nebivolol HCl 2.5 MG TAB PO SCH (10:40)
[2021-12-30] MEDS: Lisinopril 2.5 MG TAB PO SCH (10:40)
[2021-12-30 11:40] LABS: Actual Bicarbonate (HCO3a) 22.6 mEq/L (22-28); Analyzer IN Cardio OR; Base Excess (BEa) -1.4 mEq/L (-2.0 to +3.0); CO2 Tension 35.2 mmHg (35.0-45.0); Calcium, Ionized (arterial) 0.96 mmol/L (1.12-1.30); Carboxyhemoglobin (COHb) 0.3 gm% (0.0-3.0); Hemoglobin (Hb) 10.3 g/dL (14.0-18.0); O2 Tension (PaO2), arterial 414.2 mmHg (> 80.0); Potassium - ABG Lab 4.79 mmol/L (3.70-5.30); pH, Arterial 7.43 (7.35-7.45)
[2021-12-30 11:41] LABS: Actual Bicarbonate (HCO3a) 21.9 mEq/L (22-28); Analyzer IN Cardio OR; Base Excess (BEa) -3.6 mEq/L (-2.0 to +3.0); CO2 Tension 41.2 mmHg (35.0-45.0); Calcium, Ionized (arterial) 1.18 mmol/L (1.12-1.30); Carboxyhemoglobin (COHb) 0.8 gm% (0.0-3.0); Hemoglobin (Hb) 12.3 g/dL (14.0-18.0); O2 Tension (PaO2), arterial 100.4 mmHg (> 80.0); pH, Arterial 7.34 (7.35-7.45)
[2021-12-30 11:41] LABS: Actual Bicarbonate (HCO3a) 23.9 mEq/L (22-28); Analyzer IN Cardio OR; Base Excess (BEa) -1.4 mEq/L (-2.0 to +3.0); CO2 Tension 42.4 mmHg (35.0-45.0); Calcium, Ionized (arterial) 0.98 mmol/L (1.12-1.30); Carboxyhemoglobin (COHb) 0.2 gm% (0.0-3.0); Hemoglobin (Hb) 10.5 g/dL (14.0-18.0); O2 Tension (PaO2), arterial 334.8 mmHg (> 80.0); Potassium - ABG Lab 4.93 mmol/L (3.70-5.30); pH, Arterial 7.37 (7.35-7.45)
[2021-12-30 11:41] LABS: Actual Bicarbonate (HCO3v) 24 mEq/L (22-28); Analyzer IN Cardio OR; Base Excess -1.4 mEq/L (-2.0 to +3.0); Calcium, Ionized (venous) 0.98 mmol/L (1.16-1.32); Chloride (VBG) 104 mmol/L (98-106); Hemoglobin (Hb) 10.4 g/dL (12.6-17.4); Sodium 133.1 mmol/L (133-146); pH (venous) 7.37 (7.32-7.43)
[2021-12-30 11:42] LABS: Puncture Site Arterial Line
[2021-12-30 11:42] LABS: Puncture Site Arterial Line
[2021-12-30 11:42] LABS: Puncture Site Arterial Line
[2021-12-30 11:43] LABS: Puncture Site Arterial Line
[2021-12-30 11:43] LABS: Puncture Site Arterial Line
[2021-12-30] MEDS: Acetaminophen 325 MG TAB PO PRN (17:17)
[2021-12-30] MEDS ORDERED: ALPRAZolam 0.5 MG TAB PO PRN (17:51)
[2021-12-30] MEDS: Budesonide 0.5 MG/2 ML NEB NEB SCH (19:52)
[2021-12-30] MEDS: Montelukast Sodium 10 mg Tablet PO SCH (21:39)
[2021-12-31] MEDS: Levothyroxine Sodium 100 MCG TAB PO SCH (07:29)
[2021-12-31] MEDS: Budesonide 0.5 MG/2 ML NEB NEB SCH ×2 (07:36→18:53)
[2021-12-31] MEDS: Amiodarone 200 MG TAB PO SCH ×2 (09:39→21:32)
[2021-12-31] MEDS: Nebivolol HCl 2.5 MG TAB PO SCH (09:39)
[2021-12-31] MEDS: Cyclobenzaprine 10 MG TAB PO SCH ×3 (09:39→21:49)
[2021-12-31] MEDS: Famotidine 20 MG TAB PO SCH ×2 (09:39→21:33)
[2021-12-31] MEDS: Furosemide 20 MG TAB PO SCH ×2 (09:40→16:29)
[2021-12-31] MEDS: Allopurinol 300 MG TAB PO SCH (09:40)
[2021-12-31] MEDS: Aspirin 325 MG TAB PO SCH (09:40)
[2021-12-31] MEDS: Potassium Chloride 10 MEQ TAB PO SCH ×2 (09:40→16:30)
[2021-12-31] MEDS: Atorvastatin Calcium 20 MG TAB PO SCH (09:40)
[2021-12-31] MEDS: Lisinopril 2.5 MG TAB PO SCH (09:41)
[2021-12-31] MEDS: Ondansetron PF 4 MG/2 ML Vial IVP PRN ×2 (09:44→19:20)
[2021-12-31] MEDS: Acetaminophen 325 MG TAB PO PRN (16:27)
[2021-12-31] MEDS: HYDROcodone/Acetaminophen 5/325 mg Tablet PO PRN (20:12)
[2021-12-31] MEDS: Montelukast Sodium 10 mg Tablet PO SCH (21:33)
[2022-01-01] MEDS ORDERED: Albuterol 200 PUFF (6.7GM INHALER) INH PRN (03:05)
[2022-01-01] MEDS: Levothyroxine Sodium 100 MCG TAB PO SCH (06:04)
[2022-01-01] MEDS: Ondansetron PF 4 MG/2 ML Vial IVP PRN ×2 (06:08→17:20)
[2022-01-01] MEDS: Albuterol 200 PUFF (6.7GM INHALER) INH SCH ×3 (06:09→18:51)
[2022-01-01] MEDS: Mometasone 100 MCG/PUFF (1 INHALER) INH SCH ×2 (07:07→18:51)
[2022-01-01] MEDS: Cyclobenzaprine 10 MG TAB PO SCH ×3 (08:19→20:51)
[2022-01-01] MEDS: Aspirin 325 MG TAB PO SCH (08:19)
[2022-01-01] MEDS: Furosemide 40 MG TAB PO SCH (08:19)
[2022-01-01] MEDS: Potassium Chloride 10 MEQ TAB PO SCH (08:20)
[2022-01-01] MEDS: Allopurinol 300 MG TAB PO SCH (08:20)
[2022-01-01] MEDS: Famotidine 20 MG TAB PO SCH ×2 (08:20→20:51)
[2022-01-01] MEDS: Atorvastatin Calcium 20 MG TAB PO SCH (08:20)
[2022-01-01] MEDS: Nebivolol HCl 2.5 MG TAB PO SCH (08:20)
[2022-01-01] MEDS: Lisinopril 2.5 MG TAB PO SCH (08:20)
[2022-01-01] MEDS: Amiodarone 200 MG TAB PO SCH ×2 (08:20→20:52)
[2022-01-01] MEDS: Bisacodyl 5 MG TAB PO PRN (08:25)
[2022-01-01] MEDS ORDERED: Lorazepam 2 MG/ML VIAL SLOW IVP PRN (19:29)
[2022-01-01] MEDS: Montelukast Sodium 10 mg Tablet PO SCH (20:51)
[2022-01-01] MEDS: HYDROcodone/Acetaminophen 5/325 mg Tablet PO PRN (20:52)
[2022-01-02] MEDS: Albuterol 200 PUFF (6.7GM INHALER) INH SCH ×4 (00:26→21:11)
[2022-01-02] MEDS: Levothyroxine Sodium 100 MCG TAB PO SCH (05:44)
[2022-01-02] MEDS: Mometasone 100 MCG/PUFF (1 INHALER) INH SCH ×2 (05:45→21:11)
[2022-01-02] MEDS: Lisinopril 2.5 MG TAB PO SCH (09:31)
[2022-01-02] MEDS: Atorvastatin Calcium 20 MG TAB PO SCH (09:31)
[2022-01-02] MEDS: Famotidine 20 MG TAB PO SCH ×2 (09:31→21:10)
[2022-01-02] MEDS: Furosemide 40 MG TAB PO SCH (09:31)
[2022-01-02] MEDS: Amiodarone 200 MG TAB PO SCH ×2 (09:31→21:10)
[2022-01-02] MEDS: Cyclobenzaprine 10 MG TAB PO SCH ×3 (09:31→21:10)
[2022-01-02] MEDS: Potassium Chloride 10 MEQ TAB PO SCH (09:31)
[2022-01-02] MEDS: Ondansetron PF 4 MG/2 ML Vial IVP PRN (09:32)
[2022-01-02] MEDS: Nebivolol HCl 2.5 MG TAB PO SCH (09:32)
[2022-01-02] MEDS: Acetaminophen 325 MG TAB PO PRN ×2 (09:32→21:12)
[2022-01-02] MEDS: Allopurinol 300 MG TAB PO SCH (09:32)
[2022-01-02] MEDS: Aspirin 325 MG TAB PO SCH (09:32)
[2022-01-02] MEDS ORDERED: Senokot S 8.6-50 MG TAB PO PRN (12:20)
[2022-01-02] MEDS ORDERED: guaiFENesin ER 600 MG TAB PO SCH ×2 (12:45→13:00)
[2022-01-02] MEDS: Montelukast Sodium 10 mg Tablet PO SCH (21:11)
[2022-01-02] MEDS: guaiFENesin ER 600 MG TAB PO SCH (21:11)
[2022-01-03] MEDS: Albuterol 200 PUFF (6.7GM INHALER) INH SCH ×3 (00:38→21:06)
[2022-01-03] MEDS: Mometasone 100 MCG/PUFF (1 INHALER) INH SCH ×2 (05:47→21:02)
[2022-01-03] MEDS: Levothyroxine Sodium 100 MCG TAB PO SCH (05:47)
[2022-01-03] MEDS: Atorvastatin Calcium 20 MG TAB PO SCH (10:23)
[2022-01-03] MEDS: Lisinopril 2.5 MG TAB PO SCH (10:23)
[2022-01-03] MEDS: Nebivolol HCl 2.5 MG TAB PO SCH (10:23)
[2022-01-03] MEDS: guaiFENesin ER 600 MG TAB PO SCH ×2 (10:23→21:06)
[2022-01-03] MEDS: Famotidine 20 MG TAB PO SCH ×2 (10:24→21:06)
[2022-01-03] MEDS: Furosemide 40 MG TAB PO SCH (10:24)
[2022-01-03] MEDS: Aspirin 325 MG TAB PO SCH (10:24)
[2022-01-03] MEDS: Potassium Chloride 10 MEQ TAB PO SCH (10:24)
[2022-01-03] MEDS: Cyclobenzaprine 10 MG TAB PO SCH ×3 (10:24→21:05)
[2022-01-03] MEDS: Amiodarone 200 MG TAB PO SCH ×2 (10:24→21:05)
[2022-01-03] MEDS: Allopurinol 300 MG TAB PO SCH (10:24)
[2022-01-03] MEDS: Montelukast Sodium 10 mg Tablet PO SCH (21:05)
[2022-01-04] MEDS: Albuterol 200 PUFF (6.7GM INHALER) INH SCH ×4 (00:27→17:46)
[2022-01-04] MEDS: Levothyroxine Sodium 100 MCG TAB PO SCH (06:03)
[2022-01-04] MEDS: Insulin Regular 300 UNITS/3 ML VIAL SC PRN (06:04)
[2022-01-04] MEDS: Potassium Chloride 10 MEQ TAB PO SCH (09:27)
[2022-01-04] MEDS: Cyclobenzaprine 10 MG TAB PO SCH ×3 (09:27→20:59)
[2022-01-04] MEDS: Amiodarone 200 MG TAB PO SCH ×2 (09:27→20:59)
[2022-01-04] MEDS: Aspirin 325 MG TAB PO SCH (09:27)
[2022-01-04] MEDS: Atorvastatin Calcium 20 MG TAB PO SCH (09:28)
[2022-01-04] MEDS: Furosemide 40 MG TAB PO SCH (09:28)
[2022-01-04] MEDS: Allopurinol 300 MG TAB PO SCH (09:28)
[2022-01-04] MEDS: Lisinopril 2.5 MG TAB PO SCH (09:28)
[2022-01-04] MEDS: guaiFENesin ER 600 MG TAB PO SCH ×2 (09:28→20:59)
[2022-01-04] MEDS: Famotidine 20 MG TAB PO SCH ×2 (09:28→20:59)
[2022-01-04] MEDS: Nebivolol HCl 2.5 MG TAB PO SCH (09:29)
[2022-01-04] MEDS: Mometasone 100 MCG/PUFF (1 INHALER) INH SCH ×2 (09:29→17:46)
[2022-01-04 11:54] LABS: #Eosinphils 0.2 thou/uL (0.0-0.7); #Lymphocytes 1.5 thou/uL (1.20-3.40); #Monocytes 1.4 thou/uL (0.11-0.59); %Basophils 0.1 % (0.0-1.0); %Eosinophils 1.4 % (0.0-10.0); %Lymphocytes 10.8 % (21.0-51.0); %Monocytes 9.6 % (0.0-10.0); %Neutrophils 78.1 % (42.0-75.0); Hemoglobin 12.9 g/dL (14.0-18.0); Mean Corpuscular HGB CONC 32.2 g/dL (32.0-36.0); Mean Corpuscular Hemoglobin 30.3 pg (27.0-31.0); Mean Corpuscular Volume 94.1 fL (78.0-98.0); Mean Platelet Volume 6.8 fL (7.4-10.4); Platelet Count 378 thou/uL (130-400); RBC Distribution Width 12.6 % (11.5-14.5); Red Blood Cell (RBC) Count 4.25 mill/uL (4.70-6.10); White Blood Cell (WBC) Count 14.1 thou/uL (4.8-10.8)
[2022-01-04 12:17] LABS: Anion Gap 17 mmol/L (10-20); BUN (Urea Nitrogen) 28 mg/dL (8.4-25.7); Calc. Creatinine Clearance 85 mL/min (70-130); Calcium 9.3 mg/dL (7.8-10.44); Carbon Dioxide 34 mmol/L (23-31); Chloride 84 mmol/L (98-107); Glucose 146 mg/dL (80-115); Magnesium 2.2 mg/dL (1.6-2.6); Potassium 3.6 mmol/L (3.5-5.1); Sodium 131 mmol/L (136-145)
[2022-01-04] MEDS: Montelukast Sodium 10 mg Tablet PO SCH (20:59)
[2022-01-05] MEDS: Albuterol 200 PUFF (6.7GM INHALER) INH SCH ×4 (02:37→18:36)
[2022-01-05] MEDS: Levothyroxine Sodium 100 MCG TAB PO SCH (06:05)
[2022-01-05] MEDS: Mometasone 100 MCG/PUFF (1 INHALER) INH SCH ×3 (06:06→18:36)
[2022-01-05] MEDS: Potassium Chloride 10 MEQ TAB PO SCH (09:09)
[2022-01-05] MEDS: Atorvastatin Calcium 20 MG TAB PO SCH (09:09)
[2022-01-05] MEDS: Amiodarone 200 MG TAB PO SCH ×2 (09:09→22:08)
[2022-01-05] MEDS: Lisinopril 2.5 MG TAB PO SCH (09:09)
[2022-01-05] MEDS: Cyclobenzaprine 10 MG TAB PO SCH ×3 (09:09→22:09)
[2022-01-05] MEDS: Famotidine 20 MG TAB PO SCH ×2 (09:09→22:09)
[2022-01-05] MEDS: Aspirin 325 MG TAB PO SCH (09:09)
[2022-01-05] MEDS: Allopurinol 300 MG TAB PO SCH (09:09)
[2022-01-05] MEDS: Furosemide 40 MG TAB PO SCH (09:10)
[2022-01-05] MEDS: guaiFENesin ER 600 MG TAB PO SCH ×2 (09:10→22:09)
[2022-01-05] MEDS: Nebivolol HCl 2.5 MG TAB PO SCH (09:10)
[2022-01-05] MEDS: GLYCOPYR DT SCH ×4 (16:44→18:35)
[2022-01-05] MEDS: FORMOTEROL DT SCH ×4 (16:44→18:35)
[2022-01-05] MEDS: BUDESONIDE DT SCH ×4 (16:44→18:35)
[2022-01-05] MEDS: Vortioxetine Hydrobromide [Trintellix] 20 MG Tablet PO SCH ×2 (16:45→16:46)
[2022-01-05] MEDS: Montelukast Sodium 10 mg Tablet PO SCH (22:09)
[2022-01-06] MEDS: Albuterol 200 PUFF (6.7GM INHALER) INH SCH ×4 (00:21→17:58)
[2022-01-06] MEDS: Levothyroxine Sodium 100 MCG TAB PO SCH (06:21)
[2022-01-06] MEDS: Mometasone 100 MCG/PUFF (1 INHALER) INH SCH ×2 (06:22→17:58)
[2022-01-06] MEDS: Aspirin 325 MG TAB PO SCH (09:44)
[2022-01-06] MEDS: Lisinopril 2.5 MG TAB PO SCH (09:45)
[2022-01-06] MEDS: Cyclobenzaprine 10 MG TAB PO SCH ×3 (09:46→21:55)
[2022-01-06] MEDS: Potassium Chloride 10 MEQ TAB PO SCH (09:46)
[2022-01-06] MEDS: Nebivolol HCl 2.5 MG TAB PO SCH (09:46)
[2022-01-06] MEDS: Allopurinol 300 MG TAB PO SCH (09:47)
[2022-01-06] MEDS: Amiodarone 200 MG TAB PO SCH (09:47)
[2022-01-06] MEDS: guaiFENesin ER 600 MG TAB PO SCH ×2 (09:47→21:55)
[2022-01-06] MEDS: Famotidine 20 MG TAB PO SCH ×2 (09:48→21:55)
[2022-01-06] MEDS: Furosemide 40 MG TAB PO SCH (09:48)
[2022-01-06] MEDS: Atorvastatin Calcium 20 MG TAB PO SCH (09:48)
[2022-01-06] MEDS: Vortioxetine Hydrobromide [Trintellix] 20 MG Tablet PO SCH ×2 (09:56→09:58)
[2022-01-06] MEDS: GLYCOPYR DT SCH ×4 (09:57→17:59)
[2022-01-06] MEDS: BUDESONIDE DT SCH ×4 (09:57→17:59)
[2022-01-06] MEDS: FORMOTEROL DT SCH ×4 (09:57→17:59)
[2022-01-06] MEDS: Ondansetron PF 4 MG/2 ML Vial IVP PRN (14:18)
[2022-01-06] MEDS: Montelukast Sodium 10 mg Tablet PO SCH (21:55)
[2022-01-07] MEDS ORDERED: Aluminum & Magnesium Hydroxide 60 ML, diphenhydrAMINE 150 MG, Lidocaine 2% Viscous Solu... SSW PRN (01:59)
[2022-01-07 03:52] LABS: #Basophils 0.1 thou/uL (0.0-0.2); #Eosinphils 0.5 thou/uL (0.0-0.7); #Lymphocytes 1.7 thou/uL (1.20-3.40); #Monocytes 1.2 thou/uL (0.11-0.59); #Neutrophils 7.6 thou/uL (1.40-6.50); %Basophils 0.7 % (0.0-1.0); %Eosinophils 4.6 % (0.0-10.0); %Lymphocytes 15.6 % (21.0-51.0); %Monocytes 10.9 % (0.0-10.0); %Neutrophils 68.3 % (42.0-75.0); Hemoglobin 12.8 g/dL (14.0-18.0); Mean Corpuscular HGB CONC 31.7 g/dL (32.0-36.0); Mean Corpuscular Hemoglobin 30.4 pg (27.0-31.0); Mean Corpuscular Volume 95.9 fL (78.0-98.0); Mean Platelet Volume 6.4 fL (7.4-10.4); Platelet Count 400 thou/uL (130-400); RBC Distribution Width 12.8 % (11.5-14.5); Red Blood Cell (RBC) Count 4.22 mill/uL (4.70-6.10); White Blood Cell (WBC) Count 11.1 thou/uL (4.8-10.8)
[2022-01-07 04:13] LABS: Anion Gap 17 mmol/L (10-20); BUN (Urea Nitrogen) 17 mg/dL (8.4-25.7); Calc. Creatinine Clearance 98 mL/min (70-130); Calcium 8.8 mg/dL (7.8-10.44); Carbon Dioxide 35 mmol/L (23-31); Chloride 84 mmol/L (98-107); Estimated GFR 73; Glucose 114 mg/dL (80-115); Potassium 3.3 mmol/L (3.5-5.1); Sodium 133 mmol/L (136-145)
[2022-01-07] MEDS: Levothyroxine Sodium 100 MCG TAB PO SCH (06:49)
[2022-01-07] MEDS: GLYCOPYR DT SCH ×2 (06:50→18:00)
[2022-01-07] MEDS: Albuterol 200 PUFF (6.7GM INHALER) INH SCH ×4 (06:50→18:00)
[2022-01-07] MEDS: BUDESONIDE DT SCH ×2 (06:50→18:00)
[2022-01-07] MEDS: FORMOTEROL DT SCH ×2 (06:50→18:00)
[2022-01-07] MEDS: Mometasone 100 MCG/PUFF (1 INHALER) INH SCH ×2 (06:50→18:00)
[2022-01-07] MEDS: Famotidine 20 MG TAB PO SCH ×2 (08:51→20:56)
[2022-01-07] MEDS: guaiFENesin ER 600 MG TAB PO SCH ×2 (08:51→20:56)
[2022-01-07] MEDS: Aspirin 325 MG TAB PO SCH (08:51)
[2022-01-07] MEDS: Allopurinol 300 MG TAB PO SCH (08:51)
[2022-01-07] MEDS: Cyclobenzaprine 10 MG TAB PO SCH ×3 (08:51→20:56)
[2022-01-07] MEDS: Atorvastatin Calcium 20 MG TAB PO SCH (08:51)
[2022-01-07] MEDS: Lisinopril 2.5 MG TAB PO SCH (08:51)
[2022-01-07] MEDS: Amiodarone 200 MG TAB PO SCH (08:52)
[2022-01-07] MEDS: Furosemide 40 MG TAB PO SCH (08:52)
[2022-01-07] MEDS: Vortioxetine Hydrobromide [Trintellix] 20 MG Tablet PO SCH (08:52)
[2022-01-07] MEDS: Potassium Chloride 10 MEQ TAB PO SCH (08:52)
[2022-01-07] MEDS: Nebivolol HCl 2.5 MG TAB PO SCH (08:52)
[2022-01-07 09:12] VITALS: BMI 33.9
[2022-01-07] MEDS ORDERED: ALPRAZolam 0.5 MG TAB PO PRN (11:42)
[2022-01-07] MEDS: Nystatin 500,000 UNITS/5 ML UDCUP SSP SCH ×3 (12:47→20:56)
[2022-01-07] MEDS ORDERED: Nystatin 100,000 Units/mL UDCUP SSP SCH (13:00)
[2022-01-07] MEDS ORDERED: Potassium Chloride 20 MEQ TAB PO SCH (16:00)
[2022-01-07] MEDS: Montelukast Sodium 10 mg Tablet PO SCH (20:56)
[2022-01-08] MEDS: Albuterol 200 PUFF (6.7GM INHALER) INH SCH ×3 (00:38→15:54)
[2022-01-08] MEDS: Levothyroxine Sodium 100 MCG TAB PO SCH (06:24)
[2022-01-08] MEDS: BUDESONIDE DT SCH (06:39)
[2022-01-08] MEDS: FORMOTEROL DT SCH (06:39)
[2022-01-08] MEDS: Mometasone 100 MCG/PUFF (1 INHALER) INH SCH (06:39)
[2022-01-08] MEDS: GLYCOPYR DT SCH (06:39)
[2022-01-08] MEDS: Allopurinol 300 MG TAB PO SCH (10:57)
[2022-01-08] MEDS: Potassium Chloride 10 MEQ TAB PO SCH (10:57)
[2022-01-08] MEDS: Amiodarone 200 MG TAB PO SCH (10:58)
[2022-01-08] MEDS: Aspirin 325 MG TAB PO SCH (10:58)
[2022-01-08] MEDS: Atorvastatin Calcium 20 MG TAB PO SCH (10:59)
[2022-01-08] MEDS: Famotidine 20 MG TAB PO SCH (11:00)
[2022-01-08] MEDS: Cyclobenzaprine 10 MG TAB PO SCH (11:00)
[2022-01-08] MEDS: Lisinopril 2.5 MG TAB PO SCH (11:00)
[2022-01-08] MEDS: Nebivolol HCl 2.5 MG TAB PO SCH (11:00)
[2022-01-08] MEDS: Furosemide 40 MG TAB PO SCH (11:00)
[2022-01-08] MEDS: guaiFENesin ER 600 MG TAB PO SCH (11:00)
[2022-01-08] MEDS: Nystatin 500,000 UNITS/5 ML UDCUP SSP SCH ×2 (11:01→15:54)
[2022-01-08] MEDS: Vortioxetine Hydrobromide [Trintellix] 20 MG Tablet PO SCH (11:01)
[2022-01-08 16:09] VITALS: BP 124/67; TEMP 97.8
== END 2022-01-08 16:35 | DRG 235 ==
LOC: CCL 22:43 → CCU 23:48 → 2NO 12-27 09:55
PROVIDERS: ADMIT Family Medicine; ATTEND Family Medicine
PROC: 02100Z9 Bypass Coronary Artery, One Artery from Left Internal Mammary, Open Approach (ICD-10-PCS; principal; 2021-12-25)
PROC: 021209W Bypass Coronary Artery, Three Arteries from Aorta with Autologous Venous Tissue, Open Approach (ICD-10-PCS; 2021-12-25)
PROC: 06BQ4ZZ Excision of Left Saphenous Vein, Percutaneous Endoscopic Approach (ICD-10-PCS; 2021-12-25)
PROC: 5A1221Z Performance of Cardiac Output, Continuous (ICD-10-PCS; 2021-12-25)
PROC: 02L70ZK Occlusion of Left Atrial Appendage, Open Approach (ICD-10-PCS; 2021-12-25)
PROC: 8E0ZXY6 Isolation (ICD-10-PCS; 2021-12-30)
DX: I21.4 Non-ST elevation (NSTEMI) myocardial infarction (principal); J96.21 Acute and chronic respiratory failure with hypoxia; U07.1 COVID-19; I48.92 Unspecified atrial flutter; E87.3 Alkalosis; N17.9 Acute kidney failure, unspecified; F05 Delirium due to known physiological condition; Z51.5 Encounter for palliative care; Z20.822 Contact with and (suspected) exposure to COVID-19; I25.10 Atherosclerotic heart disease of native coronary artery without angina pectoris; E03.9 Hypothyroidism, unspecified; E78.5 Hyperlipidemia, unspecified; J84.10 Pulmonary fibrosis, unspecified; N40.0 Benign prostatic hyperplasia without lower urinary tract symptoms; G47.33 Obstructive sleep apnea (adult) (pediatric); M50.30 Other cervical disc degeneration, unspecified cervical region; E66.9 Obesity, unspecified; F41.9 Anxiety disorder, unspecified; N18.31 Chronic kidney disease, stage 3a; I48.91 Unspecified atrial fibrillation; R44.1 Visual hallucinations; Z87.442 Personal history of urinary calculi; I25.2 Old myocardial infarction; Z98.1 Arthrodesis status; Z95.5 Presence of coronary angioplasty implant and graft; Z98.52 Vasectomy status; Z87.891 Personal history of nicotine dependence; Z79.890 Hormone replacement therapy; Z79.899 Other long term (current) drug therapy
CPT/HCPCS: 36415; 36416; 36430; 70450; 70553; 71045; 74018; 74230; 76770; 80048; 80053; 80061; 80076; 80162; 81001; 82553; 82805; 83605; 83690; 83735; 83880; 84439; 84443; 84484; 84550; 85014; 85018; 85025; 85049; 85347; 85610; 85730; 86850; 86900; 86901; 92978; 93005; 93010; 93306; 93454; 93798; 94002; 94003; 94640; 94660; 94760; 96374; 96375; C1713; C1726; C1751; C1769; C1776; G0103; J0171; J0282; J0690; J1100; J1160; J1642; J1644; J1650; J1815; J1885; J1940; J2001; J2060; J2150; J2270; J2405; J2440; J2704; J2720; J3010; J3370; J3475; J3480; J3490; J7070; J7620; J7626; P9045; Q0163; S0017; S0020; S0028; U0002; U0003; U0005

== ENCOUNTER 2022-04-21 09:34 | Day surgery (SDC) | payer MEDICARE, BC ==
[2022-04-19 13:08] VITALS: BMI 34.4
[2022-04-21] MEDS ORDERED: fentaNYL Citrate/PF 100 MCG/2 ML SYRINGE ONE (11:26)
[2022-04-21] MEDS ORDERED: SUGAMMADEX SODIUM 200 MG/2 ML VIAL ONE (11:27)
[2022-04-21] MEDS ORDERED: Lidocaine 2% 6 ML SYR ONE (11:56)
[2022-04-21] MEDS ORDERED: EPINEPHrine 1 MG/ML AMP ONE (11:56)
[2022-04-21] MEDS ORDERED: Lidocaine 2% PF 5 ML VIAL ONE (11:56)
[2022-04-21] MEDS ORDERED: Bupivacaine 0.25% HCL 30 ML VIAL ONE (11:56)
[2022-04-21] MEDS ORDERED: cefOXitin 2 GM VIAL ONE (12:06)
[2022-04-21] MEDS ORDERED: Sodium Chloride 0.9% 100 ML ONE (12:07)
[2022-04-21] MEDS ORDERED: PHENYLEPHRINE-NS 100 MCG/ML 10 ML SYRINGE ONE (12:18)
[2022-04-21] MEDS ORDERED: Ondansetron PF 4 MG/2 ML Vial ONE (12:18)
[2022-04-21] MEDS ORDERED: NEOSTIGMINE 3 MG/3 ML SYR 3 MG/3 ML SYRINGE ONE (12:18)
[2022-04-21] MEDS ORDERED: Dexamethasone 20 MG/5 ML VIAL ONE (12:18)
[2022-04-21] MEDS ORDERED: Rocuronium Bromide 10 MG/ML (10ML VIAL) ONE (12:18)
[2022-04-21] MEDS ORDERED: Glycopyrrolate 0.2 MG/ML 5 ML SYRINGE ONE (12:18)
[2022-04-21] MEDS ORDERED: Metoclopramide HCl 10 MG/2 ML VIAL ONE (12:18)
[2022-04-21] MEDS ORDERED: Succinylcholine 200 MG/10 ml SYRINGE FS ONE (12:18)
[2022-04-21] MEDS ORDERED: PROPOFOL 200 MG/20 ML VIAL ONE (12:18)
[2022-04-21] MEDS ORDERED: Fentanyl 100 MCG/2 ML VIAL ONE ×2 (13:36→14:26)
== END 2022-04-21 16:12 | disposition home or self-care (01) ==
LOC: SDC 09:34
PROVIDERS: ATTEND Surgery
PROC: 06BY3ZC Excision of Hemorrhoidal Plexus, Percutaneous Approach (ICD-10-PCS; principal; 2022-04-21)
DX: K64.8 Other hemorrhoids (principal); E78.00 Pure hypercholesterolemia, unspecified; I25.2 Old myocardial infarction; M19.90 Unspecified osteoarthritis, unspecified site; Z87.891 Personal history of nicotine dependence; Z79.82 Long term (current) use of aspirin; Z79.890 Hormone replacement therapy; Z79.899 Other long term (current) drug therapy; Z88.8 Allergy status to other drugs, medicaments and biological substances; Z95.1 Presence of aortocoronary bypass graft
CPT/HCPCS: 88304; J0171; J0694; J1100; J2001; J2405; J2704; J2765; J3010; J3490; S0020

== ENCOUNTER 2022-08-25 06:02 | Day surgery (SDC) | payer MEDICARE, BC ==
[2022-08-24 10:47] VITALS: BMI 32.3
[2022-08-25 07:39] LABS: Hemoglobin 14.3 g/dL (14.0-18.0); Mean Corpuscular HGB CONC 32.4 g/dL (32.0-36.0); Mean Corpuscular Hemoglobin 31.6 pg (27.0-31.0); Mean Corpuscular Volume 97.8 fl (78.0-98.0); Mean Platelet Volume 7.3 fL (7.4-10.4); Platelet Count 198 10x3/uL (130-400); RBC Distribution Width 13.3 % (11.5-14.5); Red Blood Cell (RBC) Count 4.54 mill/uL (4.70-6.10); White Blood Cell (WBC) Count 9.9 10x3/uL (4.8-10.8)
[2022-08-25 07:44] LABS: Anion Gap 16 mmol/L (10-20); BUN (Urea Nitrogen) 21 mg/dL (8.4-25.7); Calc. Creatinine Clearance 118 mL/min (70-130); Calcium 9.1 mg/dL (7.8-10.44); Carbon Dioxide 22 mmol/L (23-31); Chloride 104 mmol/L (98-107); Estimated GFR 94; Glucose 111 mg/dL (80-115); Potassium 4.6 mmol/L (3.5-5.1); Sodium 137 mmol/L (136-145)
[2022-08-25] MEDS ORDERED: Midazolam HCl 2 mg/2 ml Vial ONE (08:37)
[2022-08-25] MEDS ORDERED: Ketamine 50 MG/ML (10ML VIAL) ONE (08:37)
[2022-08-25] MEDS ORDERED: GLYCOPYRROLATE/PF 0.2 MG/ML VIAL ONE (08:38)
[2022-08-25] MEDS ORDERED: PROPOFOL 200 MG/20 ML VIAL ONE (08:46)
== END 2022-08-25 10:30 | disposition home or self-care (01) ==
LOC: SDC 06:02
PROVIDERS: ATTEND Internal Medicine
PROC: 0DB78ZX Excision of Stomach, Pylorus, Via Natural or Artificial Opening Endoscopic, Diagnostic (ICD-10-PCS; principal; 2022-08-25)
DX: K31.9 Disease of stomach and duodenum, unspecified (principal); J84.10 Pulmonary fibrosis, unspecified; I25.10 Atherosclerotic heart disease of native coronary artery without angina pectoris; M19.90 Unspecified osteoarthritis, unspecified site; E03.9 Hypothyroidism, unspecified; I25.2 Old myocardial infarction; E78.00 Pure hypercholesterolemia, unspecified; G47.33 Obstructive sleep apnea (adult) (pediatric); I10 Essential (primary) hypertension; N40.0 Benign prostatic hyperplasia without lower urinary tract symptoms; Z87.891 Personal history of nicotine dependence; Z79.2 Long term (current) use of antibiotics; Z79.52 Long term (current) use of systemic steroids; Z79.620 Long term (current) use of immunosuppressive biologic; Z79.82 Long term (current) use of aspirin; Z79.890 Hormone replacement therapy; Z79.899 Other long term (current) drug therapy; Z88.8 Allergy status to other drugs, medicaments and biological substances; Z95.1 Presence of aortocoronary bypass graft; Z95.5 Presence of coronary angioplasty implant and graft
CPT/HCPCS: 43239; 80048; 85027; 93005; J3490; 88305; 88342; 93010; J2250; J2704

== ENCOUNTER 2024-01-03 10:14 | Outpatient (CLI) | payer MEDICARE | END 2024-01-03 10:15 | disposition home or self-care (01) | LOC: BICCT 10:14 | PROVIDERS: ATTEND Internal Medicine Critical Care Medicine | DX: J84.10 Pulmonary fibrosis, unspecified (principal); J47.9 Bronchiectasis, uncomplicated | CPT/HCPCS: 71250 ==

== ENCOUNTER 2025-03-26 08:40 | Outpatient (CLI) | payer MEDICARE | END 2025-03-26 08:41 | disposition home or self-care (01) | LOC: RAD 08:40 | PROVIDERS: ATTEND Internal Medicine Critical Care Medicine | DX: R06.00 Dyspnea, unspecified (principal); R06.9 Unspecified abnormalities of breathing; I51.7 Cardiomegaly; J84.10 Pulmonary fibrosis, unspecified | CPT/HCPCS: 71046 ==